=== PATIENT | female | born 1945 | race Caucasian/White ===

== ENCOUNTER 2021-08-14 17:33 | Emergency (ER) | payer MEDICARE, SELFPAY ==
--- NOTE | ~2021-08-14 | XR_ITS ---
EXAMINATION: XR HAND, LEFT XR FOREARM, LEFT CLINICAL INFORMATION: Pain after a fall COMPARISON: None TECHNIQUE: AP and lateral views of the left forearm were obtained. 3 views of the left hand FINDINGS: There is a comminuted, impacted intra-articular fracture of the distal radius resulting in ulnar positive variance. There is also an avulsion fracture of the ulnar styloid. Probable thin degenerative calcification at the ulnar aspect of the base of the 3rd proximal phalanx. Mild degenerative changes of the interphalangeal joints. No additional fracture of the right forearm. Possible small foreign body within the soft tissues of the posteromedial proximal forearm. Diffuse subcutaneous edema. XR/XR hand wrist LT IMPRESSION: Comminuted, impacted intra-articular fracture of the distal radius and avulsion fracture of the ulnar styloid.
--- NOTE | ~2021-08-14 | XR_ITS ---
EXAMINATION: XR HAND, LEFT XR FOREARM, LEFT CLINICAL INFORMATION: Pain after a fall COMPARISON: None TECHNIQUE: AP and lateral views of the left forearm were obtained. 3 views of the left hand FINDINGS: There is a comminuted, impacted intra-articular fracture of the distal radius resulting in ulnar positive variance. There is also an avulsion fracture of the ulnar styloid. Probable thin degenerative calcification at the ulnar aspect of the base of the 3rd proximal phalanx. Mild degenerative changes of the interphalangeal joints. No additional fracture of the right forearm. Possible small foreign body within the soft tissues of the posteromedial proximal forearm. Diffuse subcutaneous edema. XR/XR forearm LT 2V IMPRESSION: Comminuted, impacted intra-articular fracture of the distal radius and avulsion fracture of the ulnar styloid.
[2021-08-14 17:40] VITALS: BP 179/71; PULSE 69; RESP 16; TEMP 36.1; O2SAT 100; BMI 41.6
--- NOTE | 2021-08-14 19:41 | ED.FALL ---
HPI - Fall General Chief Complaint: Fall Stated Complaint: fell yestarday/arm pain/bruising Time Seen by Provider: 08/14/21 18:48 Source: patient Mode of arrival: ambulatory Limitations: no limitations History of Present Illness HPI Narrative: 75-year-old female who is not anticoagulated presents for a fall onto her left forearm and left hand that happened yesterday. Patient was at [facility] [place], pain her taxes, when she left the building and was on uneven ground. She tripped and fell onto her left wrist. She did not strike her head, there was no loss of consciousness. The fall was witnessed by 2 bystanders. Patient states the pain is 10/10 when she moves it and 6/10 at rest she took Tylenol at 10:00 this morning. Related Data Previous Rx's Medication Instructions Recorded oxycodone 5 mg capsule 5 mg PO Q6H 3 Days #12 cap 08/14/21 Allergies Allergy/AdvReac Type Severity Reaction Status Date / Time egg Allergy Rash Verified 08/14/21 17:45 Review of Systems Constitutional: Constitutional: Denies body ache(s), Denies chills, Denies fatigue, Denies fever(s), Denies headache(s), Denies malaise and Denies weakness Eyes: Eyes: Denies diplopia ENT: Denies vertigo, Denies dizziness, Denies headache(s) and Denies throat swelling Cardiovascular: Cardiovascular: Denies chest pain, Denies syncope, Denies leg edema, Denies lightheadedness, Denies Loss of Consciousness, Denies palpitations and Denies dyspnea Respiratory: Respiratory: Denies chest congestion, Denies cough and Denies dyspnea Gastrointestinal: Gastrointestinal: Denies abdominal pain, Denies hematochezia, Denies constipation, Denies diarrhea and Denies vomiting Musculoskeletal: Musculoskeletal: Reports arthralgias, Reports joint swelling and Reports limited range of motion Integumentary/Breasts: Skin/Breast: Reports skin swelling and Reports unusual bruising Neurologic: Denies confusion, Denies vertigo, Denies dizziness, Denies syncope, Denies headache(s) and Denies weakness Psychiatric: Psychiatric: Denies anxiety, Denies confusion and Denies depression Endocrine: Endocrine: Denies fatigue and Denies palpitations Allergic/Immunologic: Allergic/Immunologic: Denies throat swelling [facility] Past Medical History Medical History (Updated 08/14/21 @ 20:16 by YING Dunn) Cancer of kidney Cataract Diabetes HLD (hyperlipidemia) HTN (hypertension) Social History Social History Advance Directives: No Advance Directives Information Provided: No Physical Exam Vital Signs: Vital Signs: Last Vital Signs Temp 97 F 08/14/21 17:40 Pulse 69 08/14/21 17:40 Resp 16 08/14/21 17:40 BP 179/71 H 08/14/21 17:40 Pulse Ox 100 08/14/21 17:40 BMI result Body Mass Index 41.6 Const: General: cooperative, no acute distress, well developed, alert and awake; No confusion Nutritional Appearance: well nourished Orientation/consciousness: patient oriented x3 and No confusion Limitations: no limitations Eyes: Conjunctivae: conjunctivae normal Pupils: Equal, round and reactive pupils present EOM: EOMs intact bilaterally Neck: Neck: Yes full ROM, Yes no lymphadenopathy and Yes supple Resp: Effort & Inspection: normal respiratory effort and able to speak in complete sentences Auscultation: clear to auscultation bilaterally, no crackles, no rales, no rhonchi and no wheezes Cardio: Rate: regular rate Rhythm: regular rhythm Heart sounds: S1 normal heart sound present and S2 normal heart sound present GI: Inspection: Yes normal to inspection Palpation (GI): Soft to palpation, nontender, no guarding and not rigid Percussion: Yes normal to percussion Auscultation: normal bowel sounds Skin: Other: Swollen skin and bruising dorsum left hand, left distal forearm Neuro: General: patient oriented x3, tone normal, moves all extremities and No confusion Cranial nerves: Yes Equal, round and reactive pupils present Extrem: General: Yes full ROM Right upper extremity: normal capillary refill, wrist Details: tenderness Location: of the distal radius, of the distal ulna, of the anatomic snuffbox, of the dorsal wrist and of the volar wrist, swelling Location: of the dorsal wrist, abnormal ROM Details: pain with active ROM during, warmth, ecchymosis wrist distal dorsal , normal vascular exam, radial pulse present and ulnar pulse present; Negative for no abrasions, no lacerations and no crepitus and Extremity exam: right hand Details: normal capillary refill and ecchymosis Location: of the dorsal hand; No no cyanosis and no edema Psych: Appearance: grossly normal Affect: normal affect Attitude: cooperative Thought process: Normal thought process present Course Course Course Narrative: 75-year-old female presents with left wrist pain status post mechanical fall yesterday. On exam, patient has intact left upper extremity pulses, she has swelling and ecchymosis on the dorsum of her left hand, she is tender around her entire wrist, and is swelling in the distal left forearm. FINDINGS: There is a comminuted, impacted intra-articular fracture of the distal radius resulting in ulnar positive variance. There is also an avulsion fracture of the ulnar styloid. Probable thin degenerative calcification at the ulnar aspect of the base of the 3rd proximal phalanx. Mild degenerative changes of the interphalangeal joints. No additional fracture of the right forearm. Possible small foreign body within the soft tissues of the posteromedial proximal forearm. Diffuse subcutaneous edema.? XR/XR hand wrist LT IMPRESSION: Comminuted, impacted intra-articular fracture of the distal radius and avulsion fracture of the ulnar styloid. Discussed with Windy Weller, who agreed volar splint, pain medication, rest, ice, compression, elevation, follow-up with orthopedics. I relayed this information to the patient, gave her return precautions, patient verbalized agreement understanding of the plan. Discharge Plan Discharge Clinical Impression: Fracture of wrist Patient Disposition: Home, Self-Care Instructions: Wrist Fracture in Adults (ED), R.I.C.E. Treatment (ED) Additional Instructions: Please call Ortho at [phone] on Monday. I have made them aware of you, they will be calling you, but you call them at this number Please rest your left hand, leave the splint on, elevate your arm of the sling. If you have worsening pain, if your hand turns blue or purple, few of numbness or tingling, please return to the emergency room Please take oxycodone as needed Prescriptions: New oxycodone 5 mg capsule 5 mg PO Q6H 3 Days Qty: 12 0RF Referrals: Deyvi Lam MD [Physician] - Interventions: ED Discharge Assessment Last Done: 08/14/21 20:34 Discharge Date/Time: 08/14/21 20:36
[2021-08-14] MEDS: oxyCODONE HCl Immed Release 5 MG TABLET PO (19:55)
== END 2021-08-14 20:36 | disposition home or self-care (01) ==
PROVIDERS: Emergency Provider Emergency Medicine Emergency Medical Services; PCP Internal Medicine
DX: S52.572A Other intraarticular fracture of lower end of left radius, initial encounter for closed fracture (principal); I10 Essential (primary) hypertension; E11.9 Type 2 diabetes mellitus without complications; W18.30XA Fall on same level, unspecified, initial encounter; Y93.9 Activity, unspecified; Y92.243 City hall as the place of occurrence of the external cause; Y99.9 Unspecified external cause status
CPT/HCPCS: 29125; 73090; 73110; 73130; 99284

== ENCOUNTER 2023-01-10 19:11 | Inpatient (IN) | payer MEDICARE, SELFPAY ==
--- NOTE | 2023-01-10 | ECG_ITS ---
Test Reason : stork Blood Pressure : / mmHG Vent. Rate : 071 BPM Atrial Rate : 071 BPM P-R Int : 176 ms QRS Dur : 078 ms QT Int : 404 ms P-R-T Axes : 064 -16 104 degrees QTc Int : 439 ms Normal sinus rhythm T wave abnormality, consider lateral ischemia Abnormal ECG No previous ECGs available Referred By: Sarah Recinos Electronically Signed By:OUSMANE COTTON
--- NOTE | ~2023-01-10 | MR_ITS ---
EXAMINATION: MRI OF THE BRAIN WITHOUT CONTRAST CLINICAL INFORMATION: Stroke. COMPARISON: CT of the head and neck 01/10/2023. TECHNIQUE: MRI of the brain was obtained using routine sequences without contrast. FINDINGS: No diffusion abnormalities are identified to suggest an acute or subacute infarct. No mass effect or midline shift is seen. The ventricles and sulci are commensurately prominent consistent with diffuse volume loss. There are multiple scattered foci of hyperintense T2 and FLAIR signal in the periventricular and subcortical white matter, most consistent with chronic microvascular ischemic changes. There is a lacunar infarct in the posterior right periventricular region. No extra-axial fluid collections are seen. The brainstem and cerebellum are normal. No pathologic magnetic susceptibility artifact is identified on the gradient refocused acquisition. The craniovertebral junction and marrow signal are normal. There is a partially empty sella. The major intracranial flow-voids at the level of the [place] are preserved. The dural venous sinus flow-voids are maintained. The mastoid air cells are well-aerated. There is mild mucoperiosteal thickening in the bilateral ethmoid and left maxillary sinuses. MR/MR head/brain wo con IMPRESSION: 1. There are no acute bleeds or territorial infarcts. No masses are demonstrated. 2. There are chronic microvascular ischemic changes and lacunar infarcts, and there is diffuse volume loss.
--- NOTE | ~2023-01-10 | XR_ITS ---
EXAMINATION: PORTABLE CHEST 1 VIEW CLINICAL INFORMATION: leukocytosis. COMPARISON: No recent pertinent prior studies are available for comparison. TECHNIQUE: Portable frontal view of the chest was obtained. FINDINGS: The lungs are well expanded. No focal infiltrate, effusion, edema, or pneumothorax. Cardiac and mediastinal silhouettes are within normal limits for size with vascular calcification in the aorta. Degenerative changes in the shoulders and spine. No acute bony abnormality seen. XR/XR chest 1V IMPRESSION: No evidence of acute disease.
--- NOTE | ~2023-01-10 | CT_ITS ---
EXAMINATION: CT ANGIOGRAM HEAD CT ANGIOGRAM NECK CLINICAL INFORMATION: Left arm and leg weakness/paresthesia. COMPARISON: None available. TECHNIQUE: Initial noncontrast engineering teacher imaging of the head and neck was performed. Noncontrast head CT was also performed. Test bolus sequences followed by intravenous administration 70 mL of Omnipaque 350. Helical imaging was performed in the axial plane from the aortic arch to the skull vertex. Delayed postcontrast imaging of the head was also performed. The data was processed at the radiation therapy technologist's workstation for generation of MIP sequences. Angled MIPs and volume rendered reformatted images were also generated at an offline 3D workstation. Stenoses are assessed in accordance with NASCET criteria unless otherwise indicated. This CT examination was performed using dose optimization techniques as appropriate, variously including the following: *Automated exposure control. *Adjustment of mA and/or kV according to patient size (this includes techniques or standardized protocols for targeted exams where dose is matched to indication/reason for exam; i.e. extremities or head). *Use of iterative reconstruction technique. DLP: 2375 mGy-cm FINDINGS: CT Head: There is no evidence of acute intracranial hemorrhage or edematous territorial infarction. Chavez-white matter differentiation is preserved. A few foci of hypoattenuation in the periventricular and deep white matter are consistent with mild microangiopathy. The ventricles are normal in morphology and size. No evidence for obstructive hydrocephalus. No abnormal mass effect or midline shift. No extra-axial fluid collections. No pathologic intra-axial enhancement or regional oligemia. No acute soft tissue or osseous abnormalities. Mild mucosal thickening of the paranasal sinuses. The mastoid air cells and middle ear cavities are clear. CT Neck: The thyroid gland and remaining cervical soft tissues are within normal limits. Moderate degenerative disc disease from C2-T3. A disc-osteophyte complex at C5-C6 appears to cause at least moderate spinal canal stenosis at this level. Facet and uncovertebral joint arthropathy leads to osseous encroachment on the neural foramina from C2-C6. CT Upper Chest: Moderate centrilobular emphysema within the visualized lung apices. The visualized upper mediastinum is within normal limits. Neck CTA: Aortic Arch: Normal contour and caliber with moderate calcific atherosclerotic disease. Two vessel branching pattern of the arch with left common carotid artery arising from the brachiocephalic trunk. Great Vessel Origins: No significant stenosis of the branch origins. Right Common Carotid Artery: No focal stenosis or occlusion. Cervical Right Internal Carotid Artery: Mixed fibrofatty and calcific atherosclerotic disease of the carotid bulb and proximal internal carotid artery causes less than 50% stenosis. Left Common Carotid Artery: No focal stenosis or occlusion. Cervical Left Internal Carotid Artery: Calcific atherosclerotic disease of the carotid bulb and proximal internal carotid artery causing less than 50% stenosis. Cervical Right Vertebral Artery: Co-dominant. No focal stenosis or occlusion. Cervical Left Vertebral Artery: Co-dominant. No focal stenosis or occlusion. Brain CTA: Intracranial Internal Carotid Arteries: Calcific atherosclerotic disease of the intracranial internal carotid arteries without occlusion or flow-limiting stenosis. Right Anterior Cerebral Artery: Normal A1 segment. Normal opacification of the distal YANIV segments. Left Anterior Cerebral Artery: Normal A1 segment. Normal opacification of the distal YANIV segments. Anterior Communicating Artery: Normal. Right Middle Cerebral Artery: Normal M1 segment of the MCA without focal stenosis or occlusion. Normal arborization of the distal segments. Left Middle Cerebral Artery: Normal M1 segment of the MCA without focal stenosis or occlusion. Normal arborization of the distal segments. Right Vertebral Artery: Normal V4 segment. Normal opacification of the proximal segments of the posterior inferior cerebellar artery. Left Vertebral Artery: Normal V4 segment. Normal opacification of the proximal segments of the posterior inferior cerebellar artery. Basilar Artery: Normal without focal stenosis or occlusion. Normal appearance of the proximal superior cerebellar arteries. Right Posterior Cerebral Artery: Normal P1 segment. Normal opacification of the distal CLOTH EXAMINER segments. Left Posterior Cerebral Artery: Normal P1 segment. Normal opacification of the distal CLOTH EXAMINER segments. Normal opacification of the superior sagittal, straight, transverse, and sigmoid sinuses. CT/CT angio head neck IMPRESSION: 1. No evidence of acute intracranial hemorrhage or edematous territorial infarction. Mild underlying microangiopathy. 2. CTA of the head and neck without proximal occlusion or flow-limiting stenosis. 3. Moderate multilevel degenerative spondyloarthropathy of the cervical spine. Most notably, a disc-osteophyte complex at C5-C6 appears to cause at least moderate spinal canal stenosis at this level. 4. Emphysema.
--- NOTE | 2023-01-10 19:23 | ED.GENADULT ---
HPI - General Adult General Chief complaint: Weakness Stated complaint: possible stroke, minor slurred speech, L arm droop Time Seen by Provider: 01/10/23 19:21 Source: patient Mode of arrival: EMS Limitations: no limitations History of Present Illness HPI narrative: Patient comes to the emergency room complaining of multiple falls today, left upper and lower extremity weakness ankle. Patient states that she woke up around 11:00, (8-1/2 hours ago), tried to get up to the bathroom. Patient uses a walker with still fell. Patient states that she was able to get up. Overall, today she has fallen 3 times. Patient does not take any blood thinners. After the 3rd fall, patient called the ambulance. Patient denies any pain from the falls. However, patient concerned about the ongoing weakness in the left upper and lower extremity. Patient states that it has been resolving over last few hours I would still a baseline. Related Data Home Medications Medication Instructions Recorded Confirmed alprazolam 1 mg tablet 1 mg PO Q6-8H 01/10/23 atorvastatin 40 mg tablet 40 mg PO DAILY 01/10/23 fluoxetine 20 mg capsule 20 mg PO Q48H 01/10/23 fluoxetine 20 mg capsule 40 mg PO Q48H 01/10/23 hydrochlorothiazide 25 mg tablet 25 mg PO DAILY 01/10/23 latanoprost 0.005 % eye drops 1 drp ophthalmic (eye) BEDTIME 01/10/23 levothyroxine 75 mcg tablet 75 mcg PO DAILY 01/10/23 metformin 500 mg tablet 500 mg PO BIDWM 01/10/23 temazepam 15 mg capsule 15 mg PO BEDTIME insomnia 01/10/23 timolol maleate 0.5 % eye drops 1 drp QAM 01/10/23 umeclidinium 62.5 mcg-vilanterol 1 inh inhalation DAILY 01/10/23 25 mcg/actuation powdr for inhalation (Anoro Ellipta) valsartan 160 mg tablet 160 mg PO DAILY 01/10/23 Allergies Allergy/AdvReac Type Severity Reaction Status Date / Time egg Allergy Rash Verified 08/14/21 17:45 Review of Systems Review of Systems: Constitutional : No Weight loss, No Fever, No Chills, No Night Sweats, No Fatigue, No Malaise ENT/Mouth : No Hearing loss, No Ear Pain, No Nasal Congestion, No Sinus Pain, No Hoarseness, No sore throat, No Rhinorrhea, No Swallowing Difficulty Eyes: No Eye Pain, No Swelling, No Redness, No Foreign Body, No Discharge, No Vision Changes Cardiovascular : No Chest Pain, No SOB, No Dyspnea on Exertion, No Orthopnea, No Edema, No Palpitations Respiratory : No Cough, No Sputum, No Wheezing, No Smoke Exposure, No Dyspnea Gastrointestinal : No Nausea, No Vomiting, No Diarrhea, No Constipation, No abdominal Pain, No Hematochezia, No Melena Genitourinary : no irregular bleeding, No Dysuria, No Urinary Frequency, No Hematuria, No Urinary Incontinence, No Urgency, No Flank Pain, No Urinary Flow Changes, No Hesitancy Musculoskeletal : No joint pain, No Myalgias, No Joint Swelling Skin : No Skin Lesions, No rash Neuro : No Weakness, No Numbness, No Paresthesias, No Loss of Consciousness, No Dizziness, left upper and lower extremity weakness, multiple falls Psych : No Anxiety/Panic, No Depression, No SI/HI/AH/VH, No Social Issues, Heme/Lymph: No Bruising, No Bleeding,No Lymphadenopathy Endocrine : No Polyuria, No Polydipsia, No Temperature Intolerance [facility] Past Medical History Medical History Cancer of kidney Cataract HLD (hyperlipidemia) HTN (hypertension) Diabetes Social History Social History Alcohol intake: current Alcohol intake frequency: holidays/special occasions only Physical Exam ED Vital Signs: Vital Signs - 24 hr 01/10/23 19:47 01/10/23 20:02 01/10/23 21:05 Temperature 98.4 F 98.4 F 97.7 F Pulse Rate 69 69 60 Respiratory Rate 15 15 17 Blood Pressure 166/57 H 166/57 H 130/65 Pulse Oximetry 97 97 98 Oxygen Delivery Method Room Air Room Air Room Air BMI result Body Mass Index 38.7 Const Other: Appearance: Alert. Oriented X3. No acute distress. Eyes: Pupils equal, round and reactive to light. ENT: Pharynx normal. Neck: Normal inspection. Neck supple. No lymph nodes noted. No crepitus CVS: Normal heart rate and rhythm. Pulses normal. Normal S1 and S2 Respiratory: No respiratory distress. Breath sounds normal. No Wheezing. No rales Abdomen: Soft and nontender. No rigidity. No distention. Skin: Skin warm and dry. Normal skin color. Normal skin turgor. Extremities: No lower extremity edema. Left upper and lower extremity 3/5 Neuro: Oriented X 3. No motor deficit. No sensory deficit. Moving all extremities. No slurred speech. CN 2 through 12 grossly intact Psych: calm, cooperative, normal affect NIH Stroke Scale Internal: Initial- Upon Arrival Level of Consciousness: Alert Level of Consciousness Questions: Answers both questions correctly Level of Consciousness Commands: Performs both tasks correctly Best Gaze: Normal Visual: No visual loss Facial Palsy: Normal Motor Arm (Right): No drift Motor Arm (Left): No drift Motor Leg (Right): No drift Motor Leg (Left): Drift Limb Ataxia: Absent Sensory: Normal Best Language: No aphasia Dysarthia: Normal Extinction and Inattention: No abnormality Score: 1 Course Course Course Narrative: -patient's NIH score is 1 , point given for left leg draft. Patient woke up with symptoms 8-1/2 hours ago. Patient is outside of the window of treatment. Patient's symptoms are relatively mild. Patient is not a candidate for tPA. -patient's CTA of the head and neck pending -all labs pending -patient aware that she will be admitted to the hospital Medications Administered Discontinued Medications Generic Name Dose Route Start Last Admin Trade Name Freq PRN Reason Stop Dose Admin Iohexol 100 ml 01/10/23 19:32 01/10/23 19:32 Iohexol 350 Mg/Ml 100 Ml Infus..Btl IV 01/10/23 19:33 70 ml ONCE ONE Administration Medical Decision Making Medical Decision Making [facility] Narrative: -my interpretation of CTA of the head neck, no intracranial bleed, no obvious thrombus -patient still has residual weakness in the left upper lower extremity. Patient likely had a TIA versus CVA. -relation of labs, white blood cell count is elevated. Patient does not have any source of infection, likely reactive leukocytosis. -chest x-ray pending, patient has been given a urine sample yet. -I discussed the patient with Dr. De La Cruz, patient being admitted Differential Diagnosis Differential Diagnoses: The differential diagnosis associated with the presentation includes (TIA, CVA, intracranial hemorrhage) Admission/Observation Consideration of admission/observation: Escalation of care including admission/observation considered Consult Healthcare Provider Management of the patient was discussed with: Hospitalist Lab Data [facility] Lab Attestation statement: I reviewed the patient's lab results. 01/10/23 20:01 01/10/23 20:01 Labs: Lab Results 01/10/23 Range/Units 20:01 WBC 16.7 H (4.8-10.8) X10*3/uL RBC 4.79 (4.20-5.50) X10*6/uL Hgb 14.5 (12.0-16.0) g/dl Hct 44.0 (37.0-47.0) % MCV 91.9 (80.0-98.0) fL MCH 30.3 (27.0-33.0) pg MCHC 33.0 (31.0-35.0) g/dl RDW 13.8 (11.0-16.0) % Plt Count 313 (160-400) X10*3/uL MPV 10.1 (9.4-12.3) fL Immature Gran % (Auto) 1.1 H (0.0-0.4) % Neut % (Auto) 81.3 H (45-73) % Lymph % (Auto) 10.6 L (20-40) % Custer % (Auto) 5.3 (2-11) % Eos % (Auto) 1.4 (0-4) % Baso % (Auto) 0.3 (0-2) % Lymph # (Auto) 1.8 (1.2-4.9) X10*3/uL Custer # (Auto) 0.9 (0.1-1.2) X10*3/uL Eos # (Auto) 0.2 (0.0-0.4) X10*3/uL Baso # (Auto) 0.1 (0.0-0.2) X10*3/uL Abs Immat Gran (auto) 0.18 H (0.00-0.03) X10*3/uL Absolute Neuts (auto) 13.6 H (2.0-8.3) x10*3/uL Absolute Nucleated RBC 0.000 (0.0-0.012) X10*3/uL Nucleated RBC % (auto) 0.0 (0.0-0.2) /100WBC Sodium 141 (135-145) mmol/L Potassium 4.1 (3.3-5.1) mmol/L Chloride 107 (96-108) mmol/L Carbon Dioxide 25 (22-29) mmol/L Anion Gap 13 (12-20) BUN 20 H (9-16) mg/dL Creatinine 1.19 (0.5-1.4) mg/dL Estim Creat Clear Calc 44.1 Estimated GFR 44 Random Glucose 86 (60-115) mg/dL Calcium 9.6 (8.4-10.2) mg/dL Total Bilirubin 0.5 (0.0-1.0) mg/dL AST 16 (5-31) U/L ALT 12 (0-31) U/L Alkaline Phosphatase 106 (39-117) U/L Total Protein 7.0 (6.5-8.0) g/dL Albumin 3.9 (3.5-5.0) g/dL Independent Interpretation I performed an independent interpretation of an: CT Scan Radiology Impression Discussion of test interpretation with radiology: I have reviewed the radiologist's reading. Radiologist Impression: FINDINGS: CT Head: There is no evidence of acute intracranial hemorrhage or edematous territorial infarction. Chavez-white matter differentiation is preserved. A few foci of hypoattenuation in the periventricular and deep white matter are consistent with mild microangiopathy. The ventricles are normal in morphology and size. No evidence for obstructive hydrocephalus. No abnormal mass effect or midline shift. No extra-axial fluid collections. No pathologic intra-axial enhancement or regional oligemia. No acute soft tissue or osseous abnormalities. Mild mucosal thickening of the paranasal sinuses. The mastoid air cells and middle ear cavities are clear. CT Neck: The thyroid gland and remaining cervical soft tissues are within normal limits. Moderate degenerative disc disease from C2-T3. A disc-osteophyte complex at C5-C6 appears to cause at least moderate spinal canal stenosis at this level. Facet and uncovertebral joint arthropathy leads to osseous encroachment on the neural foramina from C2-C6. CT Upper Chest: Moderate centrilobular emphysema within the visualized lung apices. The visualized upper mediastinum is within normal limits. Neck CTA: Aortic Arch: Normal contour and caliber with moderate calcific atherosclerotic disease. Two vessel branching pattern of the arch with left common carotid artery arising from the brachiocephalic trunk. Great Vessel Origins: No significant stenosis of the branch origins. Right Common Carotid Artery: No focal stenosis or occlusion. Cervical Right Internal Carotid Artery: Mixed fibrofatty and calcific atherosclerotic disease of the carotid bulb and proximal internal carotid artery causes less than 50% stenosis. Left Common Carotid Artery: No focal stenosis or occlusion. Cervical Left Internal Carotid Artery: Calcific atherosclerotic disease of the carotid bulb and proximal internal carotid artery causing less than 50% stenosis. Cervical Right Vertebral Artery: Co-dominant. No focal stenosis or occlusion. Cervical Left Vertebral Artery: Co-dominant. No focal stenosis or occlusion. Brain CTA: Intracranial Internal Carotid Arteries: Calcific atherosclerotic disease of the intracranial internal carotid arteries without occlusion or flow-limiting stenosis. Right Anterior Cerebral Artery: Normal A1 segment. Normal opacification of the distal YANIV segments. Left Anterior Cerebral Artery: Normal A1 segment. Normal opacification of the distal YANIV segments. Anterior Communicating Artery: Normal. Right Middle Cerebral Artery: Normal M1 segment of the MCA without focal stenosis or occlusion. Normal arborization of the distal segments. Left Middle Cerebral Artery: Normal M1 segment of the MCA without focal stenosis or occlusion. Normal arborization of the distal segments. Right Vertebral Artery: Normal V4 segment. Normal opacification of the proximal segments of the posterior inferior cerebellar artery. Left Vertebral Artery: Normal V4 segment. Normal opacification of the proximal segments of the posterior inferior cerebellar artery. Basilar Artery: Normal without focal stenosis or occlusion. Normal appearance of the proximal superior cerebellar arteries. Right Posterior Cerebral Artery: Normal P1 segment. Normal opacification of the distal [employer] segments. Left Posterior Cerebral Artery: Normal P1 segment. Normal opacification of the distal [employer] segments. Normal opacification of the superior sagittal, straight, transverse, and sigmoid sinuses. CT/CT angio head neck IMPRESSION: 1. No evidence of acute intracranial hemorrhage or edematous territorial infarction. Mild underlying microangiopathy. 2. CTA of the head and neck without proximal occlusion or flow-limiting stenosis. 3. Moderate multilevel degenerative spondyloarthropathy of the cervical spine. Most notably, a disc-osteophyte complex at C5-C6 appears to cause at least moderate spinal canal stenosis at this level. 4. Emphysema. Critical Care Time Critical Care Time Critical Care Time: Yes Total Critical Care Time: 60 Attestation: I have personally provided critical care time. Time includes review of lab data, radiology results, discussion with consultants, and monitoring for potential decompensation. Intervention performed as documented. Discharge Plan Discharge Clinical Impression: Brain TIA Patient Disposition: Admitted As Inpatient Instructions: Transient Ischemic Attack (ED) Prescriptions: No Action latanoprost 0.005 % drops 1 drp ophthalmic (eye) BEDTIME atorvastatin 40 mg tablet 40 mg PO DAILY metformin 500 mg tablet 500 mg PO BIDWM alprazolam 1 mg tablet 1 mg PO Q6-8H levothyroxine 75 mcg tablet 75 mcg PO DAILY temazepam 15 mg capsule 15 mg PO BEDTIME hydrochlorothiazide 25 mg tablet 25 mg PO DAILY timolol maleate 0.5 % drops 1 drp QAM fluoxetine 20 mg capsule 40 mg PO Q48H Rx Instructions: ALTERNATE WITH 40 MG fluoxetine 20 mg capsule 20 mg PO Q48H Rx Instructions: ALTERNATE WITH 20 MG valsartan 160 mg tablet 160 mg PO DAILY Anoro Ellipta 62.5-25 mcg/actuation blister with device 1 inh INHALATION DAILY
[2023-01-10 19:30] VITALS: BP 154/96; PULSE 80; O2SAT 98
[2023-01-10] MEDS: iohexoL 350 MG/ML 100 ML INFUS..BTL IV (19:32)
[2023-01-10 19:47] VITALS: BP 166/57; PULSE 69; RESP 15; TEMP 36.9; O2SAT 97; BMI 38.7
[2023-01-10 20:02] VITALS: BP 166/57; PULSE 69; RESP 15; TEMP 36.9; O2SAT 97
[2023-01-10 20:05] LABS: MANUAL DIFF FLAG NO
[2023-01-10 20:19] LABS: Alanine Aminotransferase 12 U/L (0-31); Albumin Level 3.9 g/dL (3.5-5.0); Alkaline Phosphatase 106 U/L (39-117); Anion Gap 13 (12-20); Aspartate Amino Transferase 16 U/L (5-31); Bilirubin Total 0.5 mg/dL (0.0-1.0); Blood Urea Nitrogen 20 mg/dL (9-16); Calcium 9.6 mg/dL (8.4-10.2); Carbon Dioxide 25 mmol/L (22-29); Chloride 107 mmol/L (96-108); Creatinine Clr Calc Pharmacy 44.1; Estimated Glomerular Filt Rate 44; Glucose Random 86 mg/dL (60-115); Potassium 4.1 mmol/L (3.3-5.1); Sodium 141 mmol/L (135-145)
[2023-01-10 20:24] LABS: Basophils Absolute Auto 0.1 X10*3/uL (0.0-0.2); Basophils Percent Auto 0.3 % (0-2); Eosinophils Absolute Auto 0.2 X10*3/uL (0.0-0.4); Eosinophils Percent Auto 1.4 % (0-4); Hemoglobin 14.5 g/dl (12.0-16.0); Imm Gran Abs Auto 0.18 X10*3/uL (0.00-0.03); Imm Gran Pct Auto 1.1 % (0.0-0.4); Lymphocytes Absolute Auto 1.8 X10*3/uL (1.2-4.9); Lymphocytes Percent Auto 10.6 % (20-40); Mean Corpuscular Hemoglobin 30.3 pg (27.0-33.0); Mean Corpuscular Volume 91.9 fL (80.0-98.0); Mean Platelet Volume 10.1 fL (9.4-12.3); Monocytes Absolute Auto 0.9 X10*3/uL (0.1-1.2); Monocytes Percent Auto 5.3 % (2-11); Neutrophils Absolute Auto 13.6 x10*3/uL (2.0-8.3); Neutrophils Percent Auto 81.3 % (45-73); Platelet Count 313 X10*3/uL (160-400); Red Blood Count 4.79 X10*6/uL (4.20-5.50); Red Cell Distribution Width 13.8 % (11.0-16.0); White Blood Count 16.7 X10*3/uL (4.8-10.8)
[2023-01-10 21:05] VITALS: BP 130/65; PULSE 60; RESP 17; TEMP 36.5; O2SAT 98
[2023-01-10 21:41] LABS: Appearance Urine Clear; Color Urine Yellow; Glucose Urine UA Negative (Negative); Leukocyte Esterase Urine Negative (Negative); Nitrite Urine Negative (Negative); Specific Gravity - Urine 1.015 (1.005-1.025); UMIC TRIGGER UACC YES; Urine Blood Trace (Negative); Urine Ketones Negative (Negative); Urine Protein 100 (2+) mg/dL (Neg-Trace)
[2023-01-10 21:43] LABS: Bacteria Urine None Seen (None Seen); Hyaline Casts Urine 0-2 /LPF (0-2); RBC Urine 0-2 /HPF (0-2); Squamous Epithelial Cell Urine 0-2 /HPF (0-2); WBC Urine 0-5 /HPF (0-5)
--- NOTE | 2023-01-10 21:51 | PHA.MEDREC ---
Pharmacy Consult ? Medication Reconciliation Pharmacy has completed the medication reconciliation. Patient has rx bottles as well as her inhalers. Nancy Rain, AmishaD
--- NOTE | 2023-01-10 21:52 | PC.NURSE ---
Patient alert and oriented x3. Arrived via EMS with reports of left sided upper and lower extremity weakness that began at 11am today. Pt reports she fell 3 times. She denies any dizziness/lightheadedness, difficult swallowing or speaking,. Neuro intact swallow evaluation completed- pt passed. Provider declined stroke protocol. NIH 1. labs drawn, ekg completed, pt changed over to hospital gown. VSS. Pt assisted to bedside commode. Plan of care ongoing.
--- NOTE | 2023-01-10 22:16 | P.HPHOSP_ITS ---
History of Present Illness Date of Service: 01/10/23 Attending physician on admission: Nicol Sommer Chief Complaint: left sided weakness 77-year-old female with history of hyperlipidemia, hypertension, [id number] type 2 diabetes, COPD, renal cancer, depression/anxiety, glaucoma, and GUY compliant with CPAP who is a current 1 pack per day smoker presented to the ED earlier today for evaluation of left-sided weakness. She reports she woke up around 11:00 with symptoms present. She was asymptomatic when she went to bed. She states she had weakness in the left upper and lower extremity and also noted slurred speech. It was not until later when she was told that she also had left-sided facial droop. She does not typically ambulate with any assistive devices but today was requiring the use of walker. Despite walker use, she did have 3 falls. Denies any head injury or loss of consciousness. She has no history of CVA. On arrival to the ED, patient hypertensive to 179/71 with improvement to 130/65 on admission without intervention. Vitals otherwise stable. There is a leukocytosis of 16.7, hematology studies otherwise unremarkable. Renal function baseline, electrolyte levels normal. Chest x-ray pending. CT of the head/neck negative for any acute intracranial hemorrhage or edematous triggered her really infarction with mild underlying angiopathy. There is no LV AO or flow-limiting stenoses. Focal neuro deficits still present in the ED and on admission. Review of Systems 2 Review of Systems: General: No fevers, malaise, unintentional weight loss HEENT: No blurred vision, diplopia. No sore throat, nasal congestion, rhinorrhea, sinus pain, ear pain Cardiovascular: No chest pain, palpitations, or leg edema Respiratory: No shortness of breath, wheezing, cough GI: No abdominal pain, nausea, vomiting, diarrhea, constipation, melena, hematochezia : No dysuria, hematuria, increased urinary frequency, decreased urinary output MSK: No myalgia, back pain Neuro: No headaches, paresthesias. +left sided weakness, +left facial droop, +slurred speech Skin: No rashes or lesions PENDING SALE TO [facility] Medical History (Updated 01/10/23 @ 22:23 by YING Davalos) Depression with anxiety COPD (chronic obstructive pulmonary disease) Renal carcinoma GUY (obstructive sleep apnea) Glaucoma Cancer of kidney Cataract HLD (hyperlipidemia) HTN (hypertension) Diabetes Social History Alcohol intake: current Alcohol intake frequency: holidays/special occasions only Smoked in Last 30 Days: Yes Use of substances other than those prescribed or required for medical reasons: No Advance Directives: No Advance Directives Information Provided: No Meds Allergies Allergy/AdvReac Type Severity Reaction Status Date / Time egg Allergy Rash Verified 08/14/21 17:45 Active Medications: Current Medications Acetaminophen (Acetaminophen 325 Mg Tablet) 650 mg PO Q6H PRN PRN Reason: Pain, Mild (Pain Scale 1-3) Aspirin (Aspirin Enteric Coated 81 Mg Tablet.Dr) 81 mg PO DAILY [facility] Atorvastatin Calcium (Atorvastatin Calcium 80 Mg Tablet) 80 mg PO DAILY [facility] Docusate Sodium (Docusate Sodium 100 Mg Capsule) 100 mg PO DAILY PRN PRN Reason: Constipation Enoxaparin Sodium (Enoxaparin Sodium 40 Mg/0.4 Ml Syringe) 40 mg SUBCUT Q24H TREVOR Ondansetron HCl (Ondansetron Hcl 4 Mg/2 Ml Vial) 4 mg IVPUSH Q8H PRN PRN Reason: Nausea and Vomiting Sodium Chloride (0.9 % Sodium Chloride Flush 3 Ml Syringe) 3 ml IVFLUSH QSHIFT [facility] Home Medications Medication Instructions Recorded Confirmed Last Taken Type alprazolam 1 mg tablet 1 mg PO Q6-8H PRN anxiety/insomnia 01/10/23 01/10/23 Unknown History atorvastatin 40 mg tablet 40 mg PO DAILY 01/10/23 01/10/23 01/10/23 History fluoxetine 20 mg capsule 20 mg PO Q48H 01/10/23 01/10/23 01/09/23 History fluoxetine 20 mg capsule 40 mg PO Q48H 01/10/23 01/10/23 01/10/23 History hydrochlorothiazide 25 mg tablet 25 mg PO DAILY 01/10/23 01/10/23 01/10/23 History latanoprost 0.005 % eye drops 1 drp ophthalmic (eye) BEDTIME 01/10/23 01/10/23 01/09/23 History levothyroxine 75 mcg tablet 75 mcg PO DAILY 01/10/23 01/10/23 01/10/23 History metformin 500 mg tablet 500 mg PO BIDWM 01/10/23 01/10/23 01/10/23 History temazepam 15 mg capsule 15 mg PO BEDTIME insomnia 01/10/23 01/10/23 01/09/23 History timolol maleate 0.5 % eye drops 1 drp QAM 01/10/23 01/10/23 01/10/23 History umeclidinium 62.5 mcg-vilanterol 1 inh inhalation DAILY 01/10/23 01/10/23 01/10/23 History 25 mcg/actuation powdr for inhalation (Anoro Ellipta) valsartan 160 mg tablet 160 mg PO DAILY 01/10/23 01/10/23 01/10/23 History Physical Exam 2 Vital Signs and Narrative: Vital Signs: Last Vital Signs Temp 97.7 F 01/10/23 21:05 Pulse 60 01/10/23 21:05 Resp 17 01/10/23 21:05 BP 130/65 01/10/23 21:05 Pulse Ox 98 01/10/23 21:05 O2 Del Method Room Air 01/10/23 21:05 BMI result Body Mass Index 38.7 Constitutional - Awake and Alert, No apparent distress Eyes - PERRLA, EOMI Cardiovascular - S1S2, RRR, No edema Respiratory - Normal lung expansion, Normal respiratory effort, No respiratory distress, CTA bilaterally Gastrointestinal - NT / ND; +BS; No rebound or guarding Extremities - no calf tenderness bilaterally, no swelling Skin - Warm/Dry Neurological - Alert & oriented x3, left sided facial droop noted, otherwise CN II-XII in tact, 5/5 strength BLE and RUE, 3/5 strength RUE, finger to nose coordination in tact, slight left sided arm drift, symmetric 1+ patellar reflexes Psychological - Appropriate affect Results Labs 01/10/23 20:01 01/10/23 20:01 Labs: Laboratory Results - last 24 hr 01/10/23 01/10/23 20:01 21:35 MCV 91.9 MCH 30.3 MCHC 33.0 RDW 13.8 Plt Count 313 MPV 10.1 Immature Gran % (Auto) 1.1 H Neut % (Auto) 81.3 H Lymph % (Auto) 10.6 L Mckinley % (Auto) 5.3 Eos % (Auto) 1.4 Baso % (Auto) 0.3 Lymph # (Auto) 1.8 Mckinley # (Auto) 0.9 Eos # (Auto) 0.2 Baso # (Auto) 0.1 Abs Immat Gran (auto) 0.18 H Absolute Neuts (auto) 13.6 H Absolute Nucleated RBC 0.000 Nucleated RBC % (auto) 0.0 Anion Gap 13 Estim Creat Clear Calc 44.1 Estimated GFR 44 Random Glucose 86 Calcium 9.6 Total Bilirubin 0.5 AST 16 ALT 12 Alkaline Phosphatase 106 Total Protein 7.0 Albumin 3.9 Urine Color Yellow Urine Appearance Clear Urine pH 6.0 Ur Specific [place] 1.015 Urine Protein 100 (2+) H Urine Glucose (UA) Negative Urine Ketones Negative Urine Blood Trace H Urine Nitrite Negative Ur Leukocyte Esterase Negative Urine RBC 0-2 Urine WBC 0-5 Ur Squamous Epith Cells 0-2 Urine Bacteria None Seen Hyaline Casts 0-2 Imaging Radiologist's Impressions: Impressions Head/Neck CTA 01/10/23 19:39 IMPRESSION: 1. No evidence of acute intracranial hemorrhage or edematous territorial infarction. Mild underlying microangiopathy. 2. CTA of the head and neck without proximal occlusion or flow-limiting stenosis. 3. Moderate multilevel degenerative spondyloarthropathy of the cervical spine. Most notably, a disc-osteophyte complex at C5-C6 appears to cause at least moderate spinal canal stenosis at this level. 4. Emphysema. Assessment and Plan (1) CVA (cerebral vascular accident): Status: Acute Plan 77-year-old female with history of hyperlipidemia, hypertension, [id number] type 2 diabetes, COPD, renal cancer, depression/anxiety, glaucoma, and GUY compliant with CPAP who is a current 1 pack per day smoker admitted for acute CVA. # acute CVA -head/neck CTA negative for any acute intracranial abnormality or LVO or significant flow-limiting stenoses -outside window for tpa -MRI brain ordered -echocardiogram ordered -past nursing bedside swallow evaluation -325 mg ASA now, continue 81 mg ASA daily -increase atorvastatin to 80 mg daily, lipid panel pending -neurology consult -PT/OT evaluation -monitor on telemetry # leukocytosis-suspect acute and reactive in nature secondary to falls -UA negative, chest x-ray pending. Low suspicion for infection -follow CBC # hypertension -hold antihypertensives insetting acute CVA # hyperlipidemia -and lipid panel pending -increase atorvastatin to 80 mg daily # COPD -no acute exacerbation -continue Anoro Ellipta, albuterol p.r.n. # [id number] type 2 diabetes -without hyperglycemia -Humalog on sliding scale -POC glucose -diabetic diet -hold metformin # glaucoma/cataracts -continue eyedrops # anxiety/depression -continue home meds # nicotine dependence -nicotine patch for nicotine replacement therapy -smoking cessation counseling # GUY -CPAP at bedtime DVT prophylaxis-Lovenox Full code Patient requires inpatient stay at least 2 midnights for management of acute CVA Time Spent With Patient Time: Total time managing care of this patient today ____ minutes. Quality Stroke Does the patient have a stroke diagnosis?: Yes Reason for No Anti-thrombotic by Day Two: Drug treatment not indicated VTE Prior VTE?: No VTE Risk Level:: Medical - moderate - high VTE Device Contraindication: Treatment Not Indicated VTE Drug Contraindication: N/A - Med Ordered
--- NOTE | 2023-01-10 23:20 | PC.RT ---
Pt seen for NOC CPAP order. Pt states she wears CPAP at home with unknown settings and nasal pillows. At this time there are no nasal pillows available. pt was offered other forms of masks to wear with cpap but pt refused due to claustrophobia. Rn made aware. lieutenant shift supervisor will be notified in the A.M. to see if it will be possible to obtain some for the following night
[2023-01-10] MEDS: Aspirin 325 MG TABLET PO (23:24)
[2023-01-10] MEDS: Enoxaparin Sodium 40 MG/0.4 ML SYRINGE SUBCUT (23:24)
[2023-01-10] MEDS: Temazepam 15 MG CAPSULE PO (23:25)
--- NOTE | 2023-01-10 23:43 | PC.NURSE ---
Pt administered as per JUN pt swolled medications and water with no issues. Night eye drop unavailable at this time- spoke with pharmacy and charted against it. Awaiting bed assignment at this time.
[2023-01-11] VITALS (11 sets, daily range): BP systolic 137–199; BP diastolic 60–84; PULSE 58–69; RESP 13–20; TEMP 36.5–36.9; O2SAT 95–99; BMI 37.7
--- NOTE | 2023-01-11 01:02 | PC.NURSE ---
Patient alert and oriented. Neuro assessment completed GCS 15. Swallow evaluation completed pt passed. Pt resting quietly. Requested warm blanket. This rn provided pt. Call dupree within reach. Plan of care ongoing
[2023-01-11] MEDS: 0.9 % Sodium Chloride Flush 3 ML SYRINGE IVFLUSH ×3 (02:47→22:27)
--- NOTE | 2023-01-11 02:48 | PC.NURSE ---
Patient alert and oriented. Neuro intact, GCS 15.
--- NOTE | 2023-01-11 05:17 | PC.NURSE ---
PT alert and oriented. GCS 15. Patient resting quietly. Medications taken to [facility].
[2023-01-11 05:20] LABS: Estimated Average Glucose 105 mg/dL; Hemoglobin A1C 135.8612 umol/L; Hemoglobin A1c % 5.3 % (<6.0)
[2023-01-11 05:38] LABS: MANUAL DIFF FLAG NO
[2023-01-11 05:39] LABS: Basophils Absolute Auto 0.1 X10*3/uL (0.0-0.2); Basophils Percent Auto 0.4 % (0-2); Eosinophils Absolute Auto 0.3 X10*3/uL (0.0-0.4); Eosinophils Percent Auto 2.4 % (0-4); Hematocrit 43.5 % (37.0-47.0); Hemoglobin 14.2 g/dl (12.0-16.0); Imm Gran Abs Auto 0.04 X10*3/uL (0.00-0.03); Imm Gran Pct Auto 0.3 % (0.0-0.4); Lymphocytes Absolute Auto 2.9 X10*3/uL (1.2-4.9); Lymphocytes Percent Auto 21.7 % (20-40); Mean Corpuscular HGB Conc 32.6 g/dl (31.0-35.0); Mean Corpuscular Hemoglobin 29.8 pg (27.0-33.0); Mean Corpuscular Volume 91.4 fL (80.0-98.0); Mean Platelet Volume 9.6 fL (9.4-12.3); Monocytes Absolute Auto 1.2 X10*3/uL (0.1-1.2); Monocytes Percent Auto 8.7 % (2-11); Neutrophils Absolute Auto 8.9 x10*3/uL (2.0-8.3); Neutrophils Percent Auto 66.5 % (45-73); Platelet Count 299 X10*3/uL (160-400); Red Blood Count 4.76 X10*6/uL (4.20-5.50); Red Cell Distribution Width 13.7 % (11.0-16.0); White Blood Count 13.4 X10*3/uL (4.8-10.8)
[2023-01-11 05:54] LABS: Anion Gap 15 (12-20); Blood Urea Nitrogen 20 mg/dL (9-16); Calcium 9.5 mg/dL (8.4-10.2); Carbon Dioxide 24 mmol/L (22-29); Chloride 106 mmol/L (96-108); Cholesterol 155 mg/dL (<200); Creatinine Clr Calc Pharmacy 42.3; Estimated Glomerular Filt Rate 42; Glucose Random 83 mg/dL (60-115); HDL Cholesterol 37 mg/dL (>40); LDL Cholesterol Calculated 81 mg/dL (<100); Potassium 3.7 mmol/L (3.3-5.1); Sodium 141 mmol/L (135-145); Triglycerides 187 mg/dL (<150)
--- NOTE | 2023-01-11 07:08 | PC.NURSE ---
Pt medications were sealed in envelope and brought to pharmacy. Patient signed documents. Placed copies in chart.
--- NOTE | 2023-01-11 07:10 | PC.NURSE ---
Attempted to give report to Nursing Corporate Tutor for floor 4. Corporate Tutor unable to take call at this time as she is in report. Request to reach out when finished with report Gave report to day shift staff
[2023-01-11] MEDS: Levothyroxine Sodium 75 MCG TABLET PO (07:13)
[2023-01-11 07:37] LABS: Glucose, Whole Blood 86 mg/dL (60-115)
--- NOTE | 2023-01-11 07:45 | PC.NURSE ---
Initial contact with pt. medicated per order. report to [facility] on [facility], awaiting transport
[2023-01-11 09:02] LABS: Glucose, Whole Blood 89 mg/dL (60-115)
--- NOTE | 2023-01-11 09:09 | P.CNNE_ITS ---
History of Present Illness Data of Consult Service Date: 01/11/23 Primary Care Provider: Rosa Isela Wallace MD [facility] Reason for consult: Multiple falls 77 yo woman with h/o left renal clear cell cancer was in usual state of health yesterday when she woke up fine but then fell down with left sided weakness. There was no confusion. She was able to get up but fell twice more with no confusion and with left sided weakness. There was no headache, but when she tried to talk, she noted that her speech was not right. No neck pain or headache. No cardiac symptoms. Review of Systems 2 Review of Systems: As per HPI [facility] Past Medical History Medical History (Updated 01/11/23 @ 09:15 by Yaneth Wilkins MD) Depression with anxiety COPD (chronic obstructive pulmonary disease) Renal carcinoma GUY (obstructive sleep apnea) Glaucoma Cancer of kidney Cataract HLD (hyperlipidemia) HTN (hypertension) Diabetes Social History Social History Household Members: None Housing: House Do you presently have visiting nurse or other home services: No Alcohol intake: current Alcohol intake frequency: holidays/special occasions only Patient Tobacco Use Status: Current everyday Tobacco user Tobacco use type: Cigarette Meds Allergies Allergy/AdvReac Type Severity Reaction Status Date / Time egg Allergy Rash Verified 08/14/21 17:45 Active Medications: Current Medications Acetaminophen (Acetaminophen 325 Mg Tablet) 650 mg PO Q6H PRN PRN Reason: Pain, Mild (Pain Scale 1-3) Alprazolam (Alprazolam 0.5 Mg Tablet) 1 mg PO Q6H PRN PRN Reason: anxiety/insomnia Aspirin (Aspirin Enteric Coated 81 Mg Tablet.Dr) 81 mg PO DAILY [facility] Dextrose (Dextrose 50 % 25 Gm/50 Ml Syringe) 25 gm IVPUSH Q15M PRN; Protocol PRN Reason: per Hypoglycemia Standing Ord. Docusate Sodium (Docusate Sodium 100 Mg Capsule) 100 mg PO DAILY PRN PRN Reason: Constipation Enoxaparin Sodium (Enoxaparin Sodium 40 Mg/0.4 Ml Syringe) 40 mg SUBCUT Q24H [facility] Last Admin: 01/10/23 23:24 Dose: 40 mg Fluoxetine HCl (Fluoxetine Hcl 20 Mg Capsule) 20 mg PO Q48H [facility] Fluoxetine HCl (Fluoxetine Hcl 20 Mg Capsule) 40 mg PO Q48H [facility] Glucose (Glucose Gel 15 Gm Gel..Gram.) 15 gm PO Q15M PRN; Protocol PRN Reason: per Hypoglycemia Standing Ord. Insulin Human Lispro (Insulin Lispro 100 Unit/Ml 3 Ml Vial) 0 unit SUBCUT QIDACHS [facility]; Protocol Last Admin: 01/11/23 07:35 Dose: Not Given Latanoprost (Latanoprost 0.005 % Ophth Yamel 2.5 Ml Drops) 1 drop EYE-BOTH BEDTIME [facility] Last Admin: 01/10/23 23:28 Dose: Not Given Levothyroxine Sodium (Levothyroxine Sodium 75 Mcg Tablet) 75 mcg PO DAILY@0600 [facility] Last Admin: 01/11/23 07:13 Dose: 75 mcg Nicotine (Nicotine 21 Mg Patch.Td24) 21 mg TRANSDERMA DAILY [facility] Non-Formulary Medication (Umeclidinium-Vilanterol [Anoro Ellipta]) 1 inhalation INHALE RDAILY [facility] Last Admin: 01/11/23 08:30 Dose: Not Given Ondansetron HCl (Ondansetron Hcl 4 Mg/2 Ml Vial) 4 mg IVPUSH Q8H PRN PRN Reason: Nausea and Vomiting Sodium Chloride (0.9 % Sodium Chloride Flush 3 Ml Syringe) 3 ml IVFLUSH QSHIFT [facility] Last Admin: 01/11/23 08:16 Dose: 3 ml Temazepam (Temazepam 15 Mg Capsule) 15 mg PO BEDTIME [facility] Last Admin: 01/10/23 23:25 Dose: 15 mg Timolol Maleate (Timolol Maleate 0.5 % Oph Yamel 5 Ml Drbtl) 1 drop EYE-BOTH DAILY [facility] Home Medications Medication Instructions Recorded Confirmed Last Taken Type alprazolam 1 mg tablet 1 mg PO Q6-8H PRN anxiety/insomnia 01/10/23 01/10/23 Unknown History atorvastatin 40 mg tablet 40 mg PO DAILY 01/10/23 01/10/23 01/10/23 History fluoxetine 20 mg capsule 20 mg PO Q48H 01/10/23 01/10/23 01/09/23 History fluoxetine 20 mg capsule 40 mg PO Q48H 01/10/23 01/10/23 01/10/23 History hydrochlorothiazide 25 mg tablet 25 mg PO DAILY 01/10/23 01/10/23 01/10/23 History latanoprost 0.005 % eye drops 1 drp ophthalmic (eye) BEDTIME 01/10/23 01/10/23 01/09/23 History levothyroxine 75 mcg tablet 75 mcg PO DAILY 01/10/23 01/10/23 01/10/23 History metformin 500 mg tablet 500 mg PO BIDWM 01/10/23 01/10/23 01/10/23 History temazepam 15 mg capsule 15 mg PO BEDTIME insomnia 01/10/23 01/10/23 01/09/23 History timolol maleate 0.5 % eye drops 1 drp QAM 01/10/23 01/10/23 01/10/23 History umeclidinium 62.5 mcg-vilanterol 1 inh inhalation DAILY 01/10/23 01/10/23 01/10/23 History 25 mcg/actuation powdr for inhalation (Anoro Ellipta) valsartan 160 mg tablet 160 mg PO DAILY 01/10/23 01/10/23 01/10/23 History Physical Exam 2 Vital Signs: Vital Signs: Last Vital Signs Temp 97.7 F 01/11/23 08:53 Pulse 61 01/11/23 08:53 Resp 20 01/11/23 08:53 BP 199/84 H 01/11/23 08:53 Pulse Ox 99 01/11/23 08:53 O2 Del Method Room Air 01/11/23 08:53 BMI result Body Mass Index 38.7 Neuro: Other: Alert and awake with normal sp speech, fluency, comprehension and affect. No distress. She is able to provide her history in detail with no obvious confusion. Face is symmetrical. Visual barrett are full. There is no definite pronator drift. Deep tendon reflexes are trace with little bit more plantar is extensor her. There is no obvious neglect. Results Labs 01/11/23 05:34 01/11/23 05:34 Labs: Short CBC 01/10/23 01/11/23 Range/Units 20:01 05:34 WBC 16.7 H 13.4 H (4.8-10.8) X10*3/uL Hgb 14.5 14.2 (12.0-16.0) g/dl Hct 44.0 43.5 (37.0-47.0) % Plt Count 313 299 (160-400) X10*3/uL BMP 01/10/23 01/11/23 20:01 05:34 Sodium 141 141 Potassium 4.1 3.7 Chloride 107 106 Carbon Dioxide 25 24 BUN 20 H 20 H Creatinine 1.19 1.24 Calcium 9.6 9.5 Liver Function 01/10/23 Range/Units 20:01 Total Bilirubin 0.5 (0.0-1.0) mg/dL AST 16 (5-31) U/L ALT 12 (0-31) U/L Alkaline Phosphatase 106 (39-117) U/L Albumin 3.9 (3.5-5.0) g/dL Urine 01/10/23 Range/Units 21:35 Urine Color Yellow Urine Appearance Clear Urine pH 6.0 (5.0-9.0) Ur Specific [place] 1.015 (1.005-1.025) Urine Protein 100 (2+) H (Neg-Trace) mg/dL Urine Glucose (UA) Negative (Negative) mg/dL Noncontrast head CT and CTA of brain and neck did not reveal any obvious acute lesion or vascular lesion. Assessment and Plan (1) Left hemiparesis: Status: Acute 77 years old woman with hypertension and clear cell left renal cancer provided set of symptoms suggestive of left hemiparesis leading to multiple falls. Examination revealed mild left leg upper motor neuron signs suggestive of a central lesion. I recommend obtaining a noncontrast MRI of brain to rule out and ischemic infarction. Until then mainstay of management is anti-platelet agent statin and blood pressure control. PT OT consultation is also recommended per Time Spent With Patient Time: Total time managing care of this patient today ____ minutes. Procedures Date of Service Date of Service: 01/11/23
--- NOTE | 2023-01-11 09:26 | P.PNIM_ITS ---
Subjective Subjective Date of Service: 01/11/23 Interval History: still feeling weak on left Physical Exam 2 Vital Signs: Vital Signs: Last Vital Signs Temp 97.7 F 01/11/23 08:53 Pulse 61 01/11/23 08:53 Resp 20 01/11/23 08:53 BP 199/84 H 01/11/23 08:53 Pulse Ox 99 01/11/23 08:53 O2 Del Method Room Air 01/11/23 08:53 BMI result Body Mass Index 37.7 General: AO X 3, no acute distress Resp: CTA bilateral, no accessory muscles used CVS: S1,S2,RRR GI: soft, non tender, non distended Neuro: motor grossly intact, alert Psych: appropriate affect, appropriate insight Objective Data Active Medications Acetaminophen (Acetaminophen 325 Mg Tablet) 650 mg PO Q6H PRN PRN Reason: Pain, Mild (Pain Scale 1-3) Alprazolam (Alprazolam 0.5 Mg Tablet) 1 mg PO Q6H PRN PRN Reason: anxiety/insomnia Aspirin (Aspirin Enteric Coated 81 Mg Tablet.Dr) 81 mg PO DAILY [facility] Dextrose (Dextrose 50 % 25 Gm/50 Ml Syringe) 25 gm IVPUSH Q15M PRN; Protocol PRN Reason: per Hypoglycemia Standing Ord. Docusate Sodium (Docusate Sodium 100 Mg Capsule) 100 mg PO DAILY PRN PRN Reason: Constipation Enoxaparin Sodium (Enoxaparin Sodium 40 Mg/0.4 Ml Syringe) 40 mg SUBCUT Q24H [facility] Last Admin: 01/10/23 23:24 Dose: 40 mg Documented By: JANICE Fluoxetine HCl (Fluoxetine Hcl 20 Mg Capsule) 20 mg PO Q48H [facility] Fluoxetine HCl (Fluoxetine Hcl 20 Mg Capsule) 40 mg PO Q48H [facility] Glucose (Glucose Gel 15 Gm Gel..Gram.) 15 gm PO Q15M PRN; Protocol PRN Reason: per Hypoglycemia Standing Ord. Insulin Human Lispro (Insulin Lispro 100 Unit/Ml 3 Ml Vial) 0 unit SUBCUT QIDACHS [facility]; Protocol Last Admin: 01/11/23 07:35 Dose: Not Given Documented By: CARY Non-Admin Reason: No Insulin Coverage Latanoprost (Latanoprost 0.005 % Ophth Yamel 2.5 Ml Drops) 1 drop EYE-BOTH BEDTIME [facility] Last Admin: 01/10/23 23:28 Dose: Not Given Documented By: JANICE Non-Admin Reason: Med Not Available Levothyroxine Sodium (Levothyroxine Sodium 75 Mcg Tablet) 75 mcg PO DAILY@0600 [facility] Last Admin: 01/11/23 07:13 Dose: 75 mcg Documented By: CARY Nicotine (Nicotine 21 Mg Patch.Td24) 21 mg TRANSDERMA DAILY [facility] Non-Formulary Medication (Umeclidinium-Vilanterol [Anoro Ellipta]) 1 inhalation INHALE RDAILY [facility] Last Admin: 01/11/23 08:30 Dose: Not Given Documented By: ANT Non-Admin Reason: pharmacy called Ondansetron HCl (Ondansetron Hcl 4 Mg/2 Ml Vial) 4 mg IVPUSH Q8H PRN PRN Reason: Nausea and Vomiting Sodium Chloride (0.9 % Sodium Chloride Flush 3 Ml Syringe) 3 ml IVFLUSH QSHIFT [facility] Last Admin: 01/11/23 08:16 Dose: 3 ml Documented By: JAYLON Temazepam (Temazepam 15 Mg Capsule) 15 mg PO BEDTIME [facility] Last Admin: 01/10/23 23:25 Dose: 15 mg Documented By: JANICE Timolol Maleate (Timolol Maleate 0.5 % Oph Yamel 5 Ml Drbtl) 1 drop EYE-BOTH DAILY [facility] Labs 01/11/23 05:34 01/11/23 05:34 Labs: Laboratory Results - last 24 hr 01/10/23 01/10/23 01/11/23 20:01 21:35 05:34 MCV 91.9 91.4 MCH 30.3 29.8 MCHC 33.0 32.6 RDW 13.8 13.7 Plt Count 313 299 MPV 10.1 9.6 Immature Gran % (Auto) 1.1 H 0.3 Neut % (Auto) 81.3 H 66.5 Lymph % (Auto) 10.6 L 21.7 [place] % (Auto) 5.3 8.7 Eos % (Auto) 1.4 2.4 Baso % (Auto) 0.3 0.4 Lymph # (Auto) 1.8 2.9 [place] # (Auto) 0.9 1.2 Eos # (Auto) 0.2 0.3 Baso # (Auto) 0.1 0.1 Abs Immat Gran (auto) 0.18 H 0.04 H Absolute Neuts (auto) 13.6 H 8.9 H Absolute Nucleated RBC 0.000 0.000 Nucleated RBC % (auto) 0.0 0.0 Anion Gap 13 15 Estim Creat Clear Calc 44.1 42.3 Estimated GFR 44 42 POC Glucose Random Glucose 86 83 Estimat Average Glucose 105 Hemoglobin A1c % 5.3 Calcium 9.6 9.5 Total Bilirubin 0.5 AST 16 ALT 12 Alkaline Phosphatase 106 Total Protein 7.0 Albumin 3.9 Triglycerides 187 H Cholesterol 155 LDL Cholesterol, Calc 81 HDL Cholesterol 37 L Urine Color Yellow Urine Appearance Clear Urine pH 6.0 Ur Specific [place] 1.015 Urine Protein 100 (2+) H Urine Glucose (UA) Negative Urine Ketones Negative Urine Blood Trace H Urine Nitrite Negative Ur Leukocyte Esterase Negative Urine RBC 0-2 Urine WBC 0-5 Ur Squamous Epith Cells 0-2 Urine Bacteria None Seen Hyaline Casts 0-2 01/11/23 01/11/23 07:34 08:52 MCV MCH MCHC RDW Plt Count MPV Immature Gran % (Auto) Neut % (Auto) Lymph % (Auto) [place] % (Auto) Eos % (Auto) Baso % (Auto) Lymph # (Auto) [place] # (Auto) Eos # (Auto) Baso # (Auto) Abs Immat Gran (auto) Absolute Neuts (auto) Absolute Nucleated RBC Nucleated RBC % (auto) Anion Gap Estim Creat Clear Calc Estimated GFR POC Glucose 86 89 Random Glucose Estimat Average Glucose Hemoglobin A1c % Calcium Total Bilirubin AST ALT Alkaline Phosphatase Total Protein Albumin Triglycerides Cholesterol LDL Cholesterol, Calc HDL Cholesterol Urine Color Urine Appearance Urine pH Ur Specific [place] Urine Protein Urine Glucose (UA) Urine Ketones Urine Blood Urine Nitrite Ur Leukocyte Esterase Urine RBC Urine WBC Ur Squamous Epith Cells Urine Bacteria Hyaline Casts Assessment and Plan (1) Left hemiparesis: Status: Acute Plan 77F PMH hld, htn, dm, copd, renal cell cancer, mood disorder, glaucoma, jen, presented with left sided weakness left sided weakness, concern for acute cva asa, statin, pt, ot, mri, echo htn permissive htn hld statin copd stable dm insulin jen cpap dvt prophylaxi s- lovenox full code reason for continued hospitalization:awaiting stroke workyp Time Spent With Patient Time: Total time managing care of this patient today ____ minutes. Quality Stroke Does the patient have a stroke diagnosis?: Yes Reason for No Anti-thrombotic by Day Two: Drug treatment not indicated VTE Prior VTE?: No VTE Risk Level:: Medical - moderate - high VTE Device Contraindication: Treatment Not Indicated VTE Drug Contraindication: N/A - Med Ordered
--- NOTE | 2023-01-11 09:44 | MHC.CM.PN ---
CM met with Patient at bedside and addressed IMM with her, providing Patient with the original and placing a copy on the chart. Patient lives on the second floor of a 2 family house with her Brother/HCP/Jewel and her Sister-in Law on the first floor. Patient uses a cane and walker at times. PT is recommending Acute Rehab and Patient has given CM permission to search for a bed for her. PCP is Dr. Rosa Isela Wallace.CM has initiated and will follow for dc planning.
--- NOTE | 2023-01-11 10:17 | P.CDIM_ITS ---
PROVIDER RESPONSE TEXT: To clarify, the appropriate diagnosis supported by the clinical indicators: Obesity Due to excess calories QUERY TEXT: PHYSICIAN'S DOCUMENTATION REQUEST Date of Query: 01/11/2023 10:08 AM EDT Patient Name: Meg Ribeiro Admit Date: 01/11/2023 Dear Esa Carver, A review of the medical record indicates additional documentation may be needed. Please review below and update the documentation accordingly. Clinical Indicators: Nursing notes Height and Weight: BMI 37.7 Obesity class II 5ft 2in 93.5kg If possible, please provide an associated diagnosis related to the abnormal BMI, such as: Obesity Due to excess calories Morbid obesity Other (explain)Clinically unable to determine (explain)Thank you, Ivone Valadez, CCS, CDIS Use of terms such as suspected, likely, concern for, or probable (associated with a specific diagnosi s that is being evaluated, monitored, or treated as if it exists) are acceptable and can be coded in the inpatient se tting, when documented at the time of discharge. Please use your independent medical judgment in providing your response. THIS QUERY IS PART OF THE PERMANENT MEDICAL RECORD
[2023-01-11] MEDS: FLUoxetine HCl 20 MG CAPSULE PO (11:44)
[2023-01-11] MEDS: Aspirin Enteric Coated 81 MG TABLET.DR PO (11:44)
[2023-01-11] MEDS: Insulin Lispro 100 UNIT/ML 3 ML VIAL SUBCUT (11:52)
[2023-01-11 11:53] LABS: Glucose, Whole Blood 179 mg/dL (60-115)
[2023-01-11 16:20] LABS: Glucose, Whole Blood 98 mg/dL (60-115)
--- NOTE | 2023-01-11 16:55 | PC.NURSE ---
Patient arrived from ED on stretcher able to ambulate with stand by assist and walker. Oriented to room, call dupree system and staff. A&OX4 speech clear, face symmetric, tongue midline. WOOD to command 4/5 left side very slightly weaker with mild ataxia to RUE. Sensation intact, +pp bilat no edema noted. Denies headache, dizziness or vision changes pupils PERRL 3B. LSCTA denies SOB or CP, NSR on tele. BS+X4 abdomen soft non-tender denies nausea/vomiting tolerating diet. Denies pain/discomfort. Off unit for MRI in am, awaiting ECHO. OOB to chair in afternoon alarms for safety patient ringing appropriately for assistance. Will continue to monitor and report changes
[2023-01-11 21:48] LABS: Glucose, Whole Blood 112 mg/dL (60-115)
[2023-01-11] MEDS: Enoxaparin Sodium 40 MG/0.4 ML SYRINGE SUBCUT (21:55)
[2023-01-11] MEDS: Latanoprost 0.005 % Ophth Sol 2.5 ML DROPS 1 DROP EYE-BOTH (21:55)
[2023-01-11] MEDS: Temazepam 15 MG CAPSULE PO (21:55)
[2023-01-11] MEDS: ALPRAZolam 0.5 MG TABLET 1 MG PO (22:13)
[2023-01-12 03:30] VITALS: BP 173/74; PULSE 66; RESP 18; TEMP 36.6; O2SAT 98
[2023-01-12] MEDS: Levothyroxine Sodium 75 MCG TABLET PO (05:17)
[2023-01-12 07:08] VITALS: BP 163/70; PULSE 59; RESP 20; TEMP 36.6; O2SAT 96
[2023-01-12 07:08] LABS: Glucose, Whole Blood 96 mg/dL (60-115)
[2023-01-12 07:29] VITALS: PULSE 58; RESP 16; O2SAT 98
[2023-01-12] MEDS: 0.9 % Sodium Chloride Flush 3 ML SYRINGE IVFLUSH (09:05)
[2023-01-12] MEDS: FLUoxetine HCl 20 MG CAPSULE PO (09:05)
[2023-01-12] MEDS: timoloL maleate 0.5 % Oph Sol 5 ML DRBTL 1 DROP EYE-BOTH (09:05)
[2023-01-12] MEDS: FLUoxetine HCl 20 MG CAPSULE 40 MG PO (09:05)
[2023-01-12] MEDS: Aspirin Enteric Coated 81 MG TABLET.DR PO (09:06)
[2023-01-12 10:53] VITALS: BP 148/76; PULSE 57; RESP 20; TEMP 36.4; O2SAT 99
--- NOTE | 2023-01-12 11:40 | PM.DS ---
DS: Providers Provider Date of Service: 01/12/23 Date of admission: 01/10/23 22:08 Primary care physician: Rosa Isela Wallace MD Consults: 01/10/23 22:12 Consult to Neurology Routine Consulting Provider: Yaneth Wilkins Reason for consultation: cva DS: Diagnosis Discharge Diagnosis (1) Left hemiparesis: Status: Acute DS: Summary Hospital Course Hospital Course: from initial hpi: 77-year-old female with history of hyperlipidemia, hypertension, [id number] type 2 diabetes, COPD, renal cancer, depression/anxiety, glaucoma, and GUY compliant with CPAP who is a current 1 pack per day smoker presented to the ED earlier today for evaluation of left-sided weakness. She reports she woke up around 11:00 with symptoms present. She was asymptomatic when she went to bed. She states she had weakness in the left upper and lower extremity and also noted slurred speech. It was not until later when she was told that she also had left-sided facial droop. She does not typically ambulate with any assistive devices but today was requiring the use of walker. Despite walker use, she did have 3 falls. Denies any head injury or loss of consciousness. She has no history of CVA. On arrival to the ED, patient hypertensive to 179/71 with improvement to 130/65 on admission without intervention. Vitals otherwise stable. There is a leukocytosis of 16.7, hematology studies otherwise unremarkable. Renal function baseline, electrolyte levels normal. Chest x-ray pending. CT of the head/neck negative for any acute intracranial hemorrhage or edematous triggered her really infarction with mild underlying angiopathy. There is no LV AO or flow-limiting stenoses. Focal neuro deficits still present in the ED and on admission. hospital course: Patient was admitted for left-sided weakness. CTA and MRI were unremarkable. Diagnosis likely TIA. Was started on aspirin, continued on statin. For hypertension permissive hypertension was permitted, patient will restart BP meds on discharge. Hyperlipidemia is continue on statin. COPD patient was stable. Her diabetes is continue insulin. For GUY uses CPAP at night. For obesity weight loss recommended. Patient's symptoms have improved significantly and will be discharged home to continue PT. Time Spent with Patient Time attestation: Total time managing care of this patient today ____ minutes. Discharge coordination time: Greater than 30 minutes Quality: Safe Use of Opioids Does Pt have an Active Cancer Diagnosis on the Problem List?: No Quality: Stroke Does the patient have a stroke diagnosis?: Yes Reason for No Anti-thrombotic at DC: N/A - Med Ordered Reason for No Anticoagulant at DC: Drug treatment not indicated Reason Not Initiating IV-Tpa: Drug treatment not indicated Reason for No Anti-thrombotic by Day Two: N/A - Med Ordered Reason for No Statin at DC: N/A - Med Ordered Physical Exam Vital Signs: Vital Signs: Last Vital Signs Temp 97.5 F 01/12/23 10:53 Pulse 57 01/12/23 10:53 Resp 20 01/12/23 10:53 BP 148/76 H 01/12/23 10:53 Pulse Ox 99 01/12/23 10:53 O2 Del Method Room Air 01/12/23 10:53 O2 Flow Rate 1 01/12/23 03:30 BMI result Body Mass Index 37.7 General: AO X 3, no acute distress Resp: CTA bilateral, no accessory muscles used CVS: S1,S2,RRR GI: soft, non tender, non distended Neuro: motor grossly intact, alert Psych: appropriate affect, appropriate insight DS: Data Data Completed and Pending Labs on day of discharge: Laboratory Results - last 24 hr 01/11/23 01/11/23 01/11/23 11:44 16:12 21:43 POC Glucose 179 H 98 112 01/12/23 07:01 POC Glucose 96 Discharge Plan Discharge Anticipated Discharge Date/Time: 01/12/23 10:23 Patient Disposition: Home Health Service Discharge Diagnosis: left hemiparesis Referrals: [facility] [Outside] - 1 Week Rosa Isela Wallace MD [Primary Care Provider] - 1 Week Discharge Medications: New aspirin 81 mg Tablet,Delayed Release (Dr/Ec) 81 mg PO DAILY Qty: 0 0RF Continued latanoprost 0.005 % drops 1 drp ophthalmic (eye) BEDTIME atorvastatin 40 mg tablet 40 mg PO DAILY metformin 500 mg tablet 500 mg PO BIDWM alprazolam 1 mg tablet 1 mg PO Q6-8H PRN (Reason: anxiety/insomnia) levothyroxine 75 mcg tablet 75 mcg PO DAILY temazepam 15 mg capsule 15 mg PO BEDTIME hydrochlorothiazide 25 mg tablet 25 mg PO DAILY timolol maleate 0.5 % drops 1 drp QAM fluoxetine 20 mg capsule 40 mg PO Q48H Rx Instructions: ALTERNATE WITH 20MG fluoxetine 20 mg capsule 20 mg PO Q48H Rx Instructions: ALTERNATE WITH 20 MG valsartan 160 mg tablet 160 mg PO DAILY Anoro Ellipta 62.5-25 mcg/actuation blister with device 1 inh INHALATION DAILY Discharge Orders: Discharge Order (Routine); Ordered 01/12/23 Ordered By: Esa Carver Diet: Advance to usual diet Activity on Discharge: As tolerated Stand Alone Forms: Patient Portal Discharge page Care Plan Goals: recovery Health Concerns: tia Plan of Treatment: pt, asa, statin Assessment: see above Patient Instructions: Transient Ischemic Attack (ED)
--- NOTE | 2023-01-12 11:41 | MHC.CM.PN ---
Per MD, Patient will be medically cleared for dc today. PT's new recommendation is home with services; Patient has expressed that chooses not go with [facility]. [facility] has accepted Patient and there will be a SOC tomorrow.Last IMM addressed yesterday.
[2023-01-12 11:57] LABS: Glucose, Whole Blood 75 mg/dL (60-115)
--- NOTE | 2023-01-12 13:03 | P.F2F_ITS ---
Service Date Service Date: 01/12/23 Encounter Date of encounter: 01/12/23 Reasons for Services Signs and symptoms assessed: left sided weakness Reason for mcfp: medication management and medication treatment Reason for physical therapy: home safety and mobility, therapeutic exercises and restore joint function Homebound: Leaving the home is medically contraindicated at this time without the asist of a device and/or another person due th the listed conditions above and below. Reason homebound: unsteady gait / fall risk Certification: Based on the above findings, I certify that this patient is confined to the home and needs intermittent mcfp care, physical therapy and/or speech therapy, or continues to need occupational therapy. The patient is under my care, and I have initiated the establishment of the plan of care. The patient will be followed by a physician who will periodically review the plan of care. Time Spent With Patient Time: Total time managing care of this patient today ____ minutes.
== END 2023-01-12 14:55 | disposition home health service (06) | DRG 69 ==
LOC: HO.ED 21:31 → HO.EDOVER 22:16 → HO.IMC 01-11 06:39
PROVIDERS: Student in an Organized Health Care Education/Training Program; Admitting Provider Physician Assistant; Emergency Provider Emergency Medicine; PCP Internal Medicine; Visit Provider Internal Medicine
DX: G45.9 Transient cerebral ischemic attack, unspecified (principal); G81.94 Hemiplegia, unspecified affecting left nondominant side; F41.8 Other specified anxiety disorders; R29.701 NIHSS score 1; R47.81 Slurred speech; J44.9 Chronic obstructive pulmonary disease, unspecified; F17.210 Nicotine dependence, cigarettes, uncomplicated; E11.9 Type 2 diabetes mellitus without complications; E78.5 Hyperlipidemia, unspecified; Z71.6 Tobacco abuse counseling; E66.09 Other obesity due to excess calories; Z68.37 Body mass index [BMI] 37.0-37.9, adult; G47.33 Obstructive sleep apnea (adult) (pediatric); Z85.528 Personal history of other malignant neoplasm of kidney; Z79.82 Long term (current) use of aspirin; Z79.84 Long term (current) use of oral hypoglycemic drugs; Z79.890 Hormone replacement therapy; Z79.899 Other long term (current) drug therapy
CPT/HCPCS: 36415; 70496; 70498; 70551; 71045; 80048; 80053; 80061; 81001; 82947; 83036; 85025; 93005; 94640; 97116; 97162; 97166; 97530; 99285; J1650; Q9957; Q9967

== ENCOUNTER → 2023-01-10 22:08 | Outpatient (BNV) | payer MEDICARE, SELFPAY | PROVIDERS: Admitting Provider Physician Assistant; Emergency Provider Emergency Medicine; PCP Internal Medicine; Visit Provider Physician Assistant | DX: I69.354 Hemiplegia and hemiparesis following cerebral infarction affecting left non-dominant side (principal) | CPT/HCPCS: 99223; 99232; 99239; G0180 ==